=== PATIENT | female | born 1975 | race Caucasian/White ===

== ENCOUNTER 2018-11-01 00:54 | Emergency (ER) | payer OTHER ==
[~2018-11-01] VITALS: Ht 160 cm; Wt 68.0 kg
== END 2018-11-01 15:58 | disposition home or self-care (01) ==
LOC: ER 00:54
DX: N20.2 Calculus of kidney with calculus of ureter (principal); R10.31 Right lower quadrant pain

== ENCOUNTER 2019-01-11 19:44 | Inpatient (IN) | payer OTHER ==
[~2019-01-11] VITALS: Ht 160 cm; Wt 68.0 kg
== END 2019-01-15 15:52 | disposition home or self-care (01) | DRG 690 ==
LOC: ER 19:44 → MEDJ 01-12 14:54
PROVIDERS: ADMIT Specialist
PROC: BW21ZZZ Computerized Tomography (CT Scan) of Abdomen and Pelvis (ICD-10-PCS; principal; 2019-01-12)
DX: N39.0 Urinary tract infection, site not specified (principal); N20.2 Calculus of kidney with calculus of ureter; N11.1 Chronic obstructive pyelonephritis